=== PATIENT | female | born 1995 | race Caucasian/White ===

== ENCOUNTER 2018-04-30 13:40 | Outpatient (CLI) | payer BC ==
--- NOTE | 2018-04-30 14:10 | RAD ---
AP CHEST SUPINE AND UPRIGHT ABDOMEN: History: Elevated white blood cell count. FINDINGS: AP chest and two views abdomen demonstrate the lungs to be well aerated. No evidence of active intrat horacic disease seen. No evidence of effusions, pneumonia, or pneumothorax is seen. Two views of the abdomen demonstrates abdominal gas pattern to be nonspecific. No evidence of bowel o bstruction or ileus seen. IMPRESSION: Unremarkable AP chest and two views abdomen. POS: H
== END 2018-04-30 13:41 | disposition home or self-care (01) ==
LOC: RAD-FRANK 13:40
PROVIDERS: ATTEND Nurse Practitioner Family
DX: D72.828 Other elevated white blood cell count (principal); N92.6 Irregular menstruation, unspecified; R63.5 Abnormal weight gain
CPT/HCPCS: 74022; 81003; 81015; 87086